=== PATIENT | male | born 1945 | race Caucasian/White ===

== ENCOUNTER 2017-11-11 10:17 | Inpatient (IN) ==
[2017-11-11] MEDS: *HR* OxyCODONE/APAP 5/325 TABLET PO PRN (16:55)
[2017-11-11] MEDS: Mag Hydrox/Al Hydrox/Simeth 30 ML UDC PO PRN ×2 (17:40→22:59)
[2017-11-11] MEDS: *HR* Ticagrelor 90 MG TABLET PO SCH (20:54)
[2017-11-12] MEDS: *HR* OxyCODONE/APAP 5/325 TABLET PO PRN ×4 (00:36→21:33)
[2017-11-12 07:44] LABS: Basophils # 0.1 K/mcL (0.0-0.2); Basophils % 0.6 %; Eosinophils # 0.6 K/mcL (0.0-0.6); Hematocrit 32.9 % (37.5-50.1); Hemoglobin 10.9 g/dL (12.9-16.9); Immature Granulocytes % 0.8 % (0-4); Lymphocytes # 1.5 K/mcL (0.6-4.6); Lymphocytes % 19.2 %; Mean Corpuscular HGB Conc 33.1 g/dL (31.6-35.5); Mean Corpuscular Hemoglobin 30.6 pg (28.0-33.3); Mean Corpuscular Volume 92.4 fL (83.0-100.0); Mean Platelet Volume 9.1 fL (9.4-12.4); Monocytes # 0.6 K/mcL (0.0-1.3); Monocytes % 7.9 %; Neutrophils # 5.1 K/mcL (1.6-8.9); Platelet Count 457 K/mcL (140-400); Red Blood Count 3.56 M/mcL (4.19-5.50); Red Cell Distribution Width 13.4 % (11.5-14.5); Segmented Neutrophils % 64.5 %
[2017-11-12 07:51] LABS: INR 1.2; Prothrombin Time 13.5 Seconds (9.4-12.1)
[2017-11-12 07:54] LABS: Activated Partial Thrombo Time 31.6 Seconds (26.0-36.0)
[2017-11-12] MEDS: Aspirin Enteric Coated 81 MG Tablet PO SCH (07:54)
[2017-11-12] MEDS: *HR* Ticagrelor 90 MG TABLET PO SCH ×2 (07:54→21:32)
[2017-11-12] MEDS: Multivit/Ca/Min/Fe/FA 1 TAB TABLET PO SCH (07:55)
[2017-11-12] MEDS: Cholestyramine 4 GM POWD.PACK PO SCH (07:56)
[2017-11-12] MEDS: Metoprolol XL (24 HR) Succ 50 MG TAB.ER.24H PO SCH (07:57)
[2017-11-12] MEDS ORDERED: NON-FORMULARY MEDICATION 1 EACH EACH (Ubidecarenone [Coq10] 50 MG) PO SCH (09:00)
[2017-11-12] MEDS ORDERED: NON-FORMULARY MEDICATION 1 EACH EACH (Omega-3 Fatty Acids [Fish Oil] 300 MG) PO SCH (09:00)
[2017-11-12 11:10] LABS: BUN/Creatinine Ratio 13 (6-26); Blood Urea Nitrogen 14 mg/dL (8-23); Calcium 8.7 mg/dL (8.6-10.3); Carbon Dioxide 25 mEq/L (23-29); Chloride 107 mEq/L (98-107); Glucose 109 mg/dL (70-105); Osmolality,Calculated 291 (280-300); Potassium 4.3 mEq/L (3.5-5.1); Sodium 140 mEq/L (136-145); eGFR For Non-African Americans > 60 (> 60)
[2017-11-12] MEDS: Mag Hydrox/Al Hydrox/Simeth 30 ML UDC PO PRN (16:48)
[2017-11-12] MEDS ORDERED: MOM Conc 10 ML UD.LIQ PO PRN (19:13)
--- NOTE | 2017-11-12 19:23 | Internal Med History&Physical ---
Date of Encounter: 11/12/17 Time of Encounter: 18:40 Assessment and Plan (1) CAD (coronary artery disease) Current visit: No Status: Chronic CABG 11/05/2017. Continue medical therapy. PT and OT evaluations with ongoing intervention will be done. Qualifiers: Coronary Disease-Associated Artery/Lesion type: [place] artery [place] vs. transplanted heart: [place] heart Associated angina: with unstable angina Qualified Code(s): I25.110 - Atherosclerotic heart disease of [place] coronary artery with unstable angina pectoris (2) Hyperlipidemia Current visit: No Status: Chronic Statin intolerant. Qualifiers: Hyperlipidemia type: unspecified Qualified Code(s): E78.5 - Hyperlipidemia , unspecified (3) GERD (gastroesophageal reflux disease) Current visit: No Status: Chronic Schedule PPI and use Mylanta when necessary. Qualifiers: Esophagitis presence: esophagitis presence not specified Qualified Code(s) : K21.9 - Gastro-esophageal reflux disease without esophagitis (4) Anemia Current visit: Yes Status: Acute Postop anemia. Monitor CBC. Qualifiers: Anemia type: unspecified type Qualified Code(s): D64.9 - Anemia, unspecified Internal Medicine - H&P: HPI Chief complaint: CABG Admitted From: Hospital to Hospital Transfer Plans for Post Hospital Care: Home History of present illness: Mr. Mc is a 72 year old male who was transferred to [facility] swing bed following hospitalization at [facility] October 31-November 11. He had 2 non-STEMI is in the 2 weeks preceding surgery and stent placement. He underwent 3 vessel CABG (ERNANDEZ to LAD, SVG to PDA, and SVG to OM1) on 11/05/2017. His postop course was unremarkable and he was discharged to [facility] swing bed for rehabilitation therapy prior to returning home. He had multiple previous stents. He denies hypertension, DVT or pulmonary embolus. Echocardiogram 10/30/2017 showed LVEF of 60% with mild LV diastolic dysfunction reported. The E/A ratio was 0.9. There was mild tricuspid regurgitation and mild to moderate pulmonic regurgitation. He underwent left carotid endarterectomy September 2017. 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 Past Med Surg Social Fam HX - Past Medical History Medical history: CVA, hypertension, myocardial infarction Additional medical history: Carotid stenosis Psychiatric history: no psych history - Past Surgical History Surgical History: angioplasty/stent, colostomy, orthopedic, other Additional surgical history: LITHOTRIPSY FOR KIDNEY STONES. ORIF LEFT ANKLE. Carotid Surgery - Social History Smoking Status: Never smoker Smokeless Tobacco Status: No Alcohol use: none Drug use: none - Family History Father Living Status: Hx Family Cardiac Disorders: Yes (CABG) Internal Medicine - H&P: Meds Aspirin [Adult Aspirin Regimen] 81 mg PO DAILY 09/09/17 [History] Multivitamin [Multivitamins] 1 each PO DAILY 10/27/17 [History] [place]-3 Fatty Acids [Fish Oil] 300 mg PO DAILY 10/27/17 [History] Ubidecarenone [Coq10] 50 mg PO DAILY 10/27/17 [History] Cholestyramine 4 gm PO 0700 #30 powd.pack 10/30/17 [Rx] Metoprolol XL (24 HR) Succ [Toprol Xl] 50 mg PO DAILY #30 tab.er.24h 10/30/17 [ Rx] Ticagrelor [Brilinta] 90 mg PO BID #60 tablet 10/30/17 [Rx] OxyCODONE/APAP 5/325 [Percocet 5/325 MG] 1 each PO Q4HR PRN 7 Days #42 tablet [Rx] 3 Allergy/AdvReac Type Severity Reaction Status Date / Time niacin Allergy See Verified 10/28/17 10:24 Comments Jalwtty-Ldb-Pix Reductase Allergy See Verified 10/28/17 10:24 Inhibitor Comments [Statins] All Systems PM: A 10-system review of systems was performed and is negative for pertinent findings except as documented above in the HPI. Review of systems: Gen.: He states his weight has been stable the past few months Cardiovascular: As per history of present illness Respiratory: He is a lifelong nonsmoker and has no known chronic lung disease GI: He reports gluten sensitivity. He has esophageal spasm with GERD. Denies disorders of his liver gallbladder or exocrine pancreas. : He had remote kidney stone. He denies other kidney bladder prostate disorders. Neurologic: He reports having a stroke in 1988 without permanent neurologic deficit other than being "emotional" since the stroke. He has been diagnosed with peripheral neuropathy. Endocrine: He has hyperlipidemia but is statin intolerant. He denies diabetes or thyroid disease. Hematology/oncology: He had postoperative anemia developed after CABG surgery. He denies internal malignancies or other blood disorders. Psychiatric: Has anxiety but denies depression or other mental health issues. [place] skeletal: He has DJD. He denies gout. - Constitutional Vitals: Temp Pulse Resp BP Pulse Ox 98.5 F 88 19 122/68 99 11/12/17 07:15 11/12/17 07:15 11/12/17 07:15 11/12/17 07:15 11/12/17 07:15 Exam: Gen.: He is well-developed well-nourished male resting comfortably in bed who appears in no acute distress HEENT: Head is atraumatic and normocephalic. Eyes: EOMI. There is no scleral icterus. Mouth: Mucosa is moist. Neck: Supple and nontender. There is no thyromegaly or adenopathy noted. Heart: Regular without murmurs gallops or ectopics Chest: He has a healing sternal incision with multiple epigastric stab wounds from drain sites. Abdomen is nontender to palpation. Extremities: There is no cyanosis edema or clubbing noted. He has healing incisions in his right leg from SVG harvest. Neurologic: Mental status: He is talkative and a good historian. He has transient emotional sadness moments where he almost becomes tearful for a few seconds then abruptly returns to smiling. Cranial nerves: Smile is symmetric. Forehead wrinkles bilaterally. Tongue protrudes midline. EOMI. Motor: There is no pronator drift. Cerebellar: Finger to nose is intact bilaterally. Skin: Warm and dry Internal Med - H&P Results - Labs CBC & Chem 7: 11/12/17 07:33 11/12/17 07:33 Labs: Short CBC 11/12/17 Range/Units 07:33 WBC 7.9 (4.3-11.1) K/mcL Hgb 10.9 L (12.9-16.9) g/dL Hct 32.9 L (37.5-50.1) % Plt Count 457 H D (140-400) K/mcL Neutrophils # 5.1 (1.6-8.9) K/mcL BMP 11/12/17 07:33 Sodium 140 Potassium 4.3 Chloride 107 Carbon Dioxide 25 BUN 14 Creatinine 1.06 Glucose 109 H Calcium 8.7
[2017-11-13] MEDS: *HR* OxyCODONE/APAP 5/325 TABLET PO PRN ×4 (02:56→20:47)
[2017-11-13] MEDS: ALPRAZolam 0.5 MG TABLET PO PRN (03:32)
[2017-11-13] MEDS: Metoprolol XL (24 HR) Succ 50 MG TAB.ER.24H PO SCH (07:28)
[2017-11-13] MEDS: Cholestyramine 4 GM POWD.PACK PO SCH (07:28)
[2017-11-13] MEDS: Aspirin Enteric Coated 81 MG Tablet PO SCH (07:28)
[2017-11-13] MEDS: Multivit/Ca/Min/Fe/FA 1 TAB TABLET PO SCH (07:28)
[2017-11-13] MEDS: *HR* Ticagrelor 90 MG TABLET PO SCH ×2 (07:32→20:46)
--- NOTE | 2017-11-13 20:01 | Internal Med Progress Note ---
Date of Encounter: 11/13/17 Time of Encounter: 19:50 - Assessment and plan (1) CAD (coronary artery disease) Current Visit: No Status: Chronic Assessment and plan: November 13. CABG 11/05/2017. Continue medical therapy and PT OT intervention. Anticipate discharge home in 2-3 days. Qualifiers: Coronary Disease-Associated Artery/Lesion type: [place] artery [place] vs. transplanted heart: [place] heart Associated angina: with unstable angina Qualified Code(s): I25.110 - Atherosclerotic heart disease of [place] coronary artery with unstable angina pectoris (2) Hyperlipidemia Current Visit: No Status: Chronic Assessment and plan: November 13. Statin intolerant Qualifiers: Hyperlipidemia type: unspecified Qualified Code(s): E78.5 - Hyperlipidemia , unspecified (3) GERD (gastroesophageal reflux disease) Current Visit: No Status: Chronic Assessment and plan: November 13. Continue scheduled PPI and Mylanta when necessary Qualifiers: Esophagitis presence: esophagitis presence not specified Qualified Code(s) : K21.9 - Gastro-esophageal reflux disease without esophagitis (4) Anemia Current Visit: Yes Status: Acute Assessment and plan: November 13. Postop anemia. Monitor CBC as needed. Qualifiers: Anemia type: unspecified type Qualified Code(s): D64.9 - Anemia, unspecified - Subjective Interval history: November 13. He has no new complaints and feels well. - Constitutional Vitals: Temp Pulse Resp BP Pulse Ox 98.1 F 88 16 97/66 97 11/13/17 19:03 11/13/17 19:03 11/13/17 19:03 11/13/17 19:03 11/13/17 19:03 Exam: He is resting comfortably in bed and appears in no acute distress. His affect is cheerful. I reviewed his medications and lab results. Internal Medicine: Result - Labs CBC & Chem 7: 11/12/17 07:33 11/12/17 07:33 - ABG Interpretation ABG results: PT/INR, D-dimer PT 13.5 Seconds (9.4-12.1) H 11/12/17 07:33 Consult Discharge Plan - Plan Referrals: Harshil Carrera MD [Primary Care Provider] - 1 week
[2017-11-14] MEDS: *HR* OxyCODONE/APAP 5/325 TABLET PO PRN ×4 (05:24→22:55)
[2017-11-14] MEDS: Aspirin Enteric Coated 81 MG Tablet PO SCH (08:32)
[2017-11-14] MEDS: Multivit/Ca/Min/Fe/FA 1 TAB TABLET PO SCH (08:32)
[2017-11-14] MEDS: Cholestyramine 4 GM POWD.PACK PO SCH (08:32)
[2017-11-14] MEDS: Metoprolol XL (24 HR) Succ 50 MG TAB.ER.24H PO SCH (08:32)
[2017-11-14] MEDS: *HR* Ticagrelor 90 MG TABLET PO SCH ×2 (08:32→22:56)
[2017-11-14] MEDS: ALPRAZolam 0.5 MG TABLET PO PRN (17:09)
[2017-11-15] MEDS: *HR* OxyCODONE/APAP 5/325 TABLET PO PRN ×2 (03:40→10:55)
[2017-11-15] MEDS: Cholestyramine 4 GM POWD.PACK PO SCH (06:33)
[2017-11-15] MEDS: Multivit/Ca/Min/Fe/FA 1 TAB TABLET PO SCH (08:14)
[2017-11-15] MEDS: Metoprolol XL (24 HR) Succ 50 MG TAB.ER.24H PO SCH (08:14)
[2017-11-15] MEDS: Aspirin Enteric Coated 81 MG Tablet PO SCH (08:14)
[2017-11-15] MEDS: *HR* Ticagrelor 90 MG TABLET PO SCH (08:15)
[2017-11-15 09:02] VITALS: BP 125/76
--- NOTE | 2017-11-15 09:25 | Discharge Summary ---
Date of Encounter: 11/15/17 Time of Encounter: 09:15 - Discharge Diagnosis (1) CAD (coronary artery disease) Priority: Primary Status: Chronic Qualifiers: Coronary Disease-Associated Artery/Lesion type: [place] artery [place] vs. transplanted heart: [place] heart Associated angina: with unstable angina Qualified Code(s): I25.110 - Atherosclerotic heart disease of [place] coronary artery with unstable angina pectoris (2) Hyperlipidemia Priority: Secondary Status: Chronic Qualifiers: Hyperlipidemia type: unspecified Qualified Code(s): E78.5 - Hyperlipidemia , unspecified (3) GERD (gastroesophageal reflux disease) Priority: Secondary Status: Chronic Qualifiers: Esophagitis presence: esophagitis presence not specified Qualified Code(s) : K21.9 - Gastro-esophageal reflux disease without esophagitis (4) Anemia Priority: Secondary Status: Acute Qualifiers: Anemia type: unspecified type Qualified Code(s): D64.9 - Anemia, unspecified Hospital course: Mr. Mc is a 72 year old male who was transferred to [facility] swing bed following hospitalization at [facility] October 31-November 11. He had 2 non-STEMI is in the 2 weeks preceding surgery and stent placement. He underwent 3 vessel CABG (ERNANDEZ to LAD, SVG to PDA, and SVG to OM1) on 11/05/2017. His postop course was unremarkable and he was discharged to [facility] swing bed for rehabilitation therapy prior to returning home. Initial orders were written by the discharging physician at [facility]. I saw him on November 12 and performed the swing bed history and physical. Physical therapy and occupational therapy evaluations with ongoing intervention were done. He made satisfactory progress. There were no complications and on November 15 arrangements were complete for him to be discharged home. He will follow with his PCP within 1 week. 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 He will have home health services ordered. - Time Spent with Patient Total time spent providing and/or coordinating discharge services: - Discharge Medications Prescriptions: ALPRAZolam [Xanax 0.5 MG Tablet] 0.5 mg PO Q6H PRN 3 Days #12 tablet PRN Reason: Anxiety Home Medications: Aspirin [Adult Aspirin Regimen] 81 mg PO DAILY 09/09/17 [History] Multivitamin [Multivitamins] 1 each PO DAILY 10/27/17 [History] [place]-3 Fatty Acids [Fish Oil] 300 mg PO DAILY 10/27/17 [History] Ubidecarenone [Coq10] 50 mg PO DAILY 10/27/17 [History] Cholestyramine 4 gm PO 0700 #30 powd.pack 10/30/17 [Rx] Metoprolol XL (24 HR) Succ [Toprol Xl] 50 mg PO DAILY #30 tab.er.24h 10/30/17 [ Rx] Ticagrelor [Brilinta] 90 mg PO BID #60 tablet 10/30/17 [Rx] OxyCODONE/APAP 5/325 [Percocet 5/325 MG] 1 each PO Q4HR PRN 7 Days #42 tablet [Rx] ALPRAZolam [Xanax 0.5 MG Tablet] 0.5 mg PO Q6H PRN 3 Days #12 tablet 11/15/17 [ Rx] Allergies/Adverse Reactions: 3 Allergy/AdvReac Type Severity Reaction Status Date / Time niacin Allergy See Verified 10/28/17 10:24 Comments Rxfimhb-Tcy-Zwd Reductase Allergy See Verified 10/28/17 10:24 Inhibitor Comments [Statins] Date of admission: 11/11/17 10:44 Primary care physician: Harshil Carrera MD Consults: 11/11/17 10:53 Consult to Occupational Therapy [CONS] Routine Comment: eval, develop, and implement POC Reason for Consult: eval, develop, and implement POC Does patient have active BEDREST order?: No Is patient medically & hemodynamically stable?: Yes Consult to Physical Therapy [CONS] Routine Comment: eval, develop, and implement POC Reason for Consult: eval, develop, and implement POC Does patient have active BEDREST order?: No Is patient medically & hemodynamically stable?: Yes Consult to Cardiac Monitor Technician [CONS] Routine Reason for SW Consult: may need HH upon discharged - Constitutional Vitals: Temp Pulse Resp BP Pulse Ox 98.2 F 92 18 125/76 96 11/15/17 08:59 11/15/17 08:59 11/15/17 08:59 11/15/17 08:59 11/15/17 08:59 - Patient Status Disposition: Home Health Service - Discharge Instructions Follow Up With: Harshil Carrera MD [Primary Care Provider] - 1 week - Diet and Activity Activity: as per physical therapy Diet: advance to your usual diet - VTE Documentation of Mechanical Device: Graduated compression elastic hosiery
--- NOTE | 2017-11-15 09:29 | Physician Discharge Referral ---
Home Health/Hosp Referral Info Transfer to: Home Health Attending Provider: Tyron Provider in Charge Post Discharge: PCP Jonathon) - Diagnosis (1) CAD (coronary artery disease) Priority: Primary Status: Chronic (2) Hyperlipidemia Priority: Secondary Status: Chronic (3) GERD (gastroesophageal reflux disease) Priority: Secondary Status: Chronic (4) Anemia Priority: Secondary Status: Acute - Respiratory Orders Smoking Cessation: Smoking cessation has been advised. For more information, call the [place] Tobacco Quit Line at 1-374-HYWX-NOW. - Diet/Nutrition Diet/Nutrition Orders: Cardiac - Activity Activity Orders: Up ad linda - Services Needed Following services are medically necessary services: Nursing, Home Health Aide, Physical Therapy, Occupational Therapy - Transfer Medications Prescriptions: ALPRAZolam [Xanax 0.5 MG Tablet] 0.5 mg PO Q6H PRN 3 Days #12 tablet PRN Reason: Anxiety Home Medications: Aspirin [Adult Aspirin Regimen] 81 mg PO DAILY 09/09/17 [History] Multivitamin [Multivitamins] 1 each PO DAILY 10/27/17 [History] [place]-3 Fatty Acids [Fish Oil] 300 mg PO DAILY 10/27/17 [History] Ubidecarenone [Coq10] 50 mg PO DAILY 10/27/17 [History] Cholestyramine 4 gm PO 0700 #30 powd.pack 10/30/17 [Rx] Metoprolol XL (24 HR) Succ [Toprol Xl] 50 mg PO DAILY #30 tab.er.24h 10/30/17 [ Rx] Ticagrelor [Brilinta] 90 mg PO BID #60 tablet 10/30/17 [Rx] OxyCODONE/APAP 5/325 [Percocet 5/325 MG] 1 each PO Q4HR PRN 7 Days #42 tablet [Rx] ALPRAZolam [Xanax 0.5 MG Tablet] 0.5 mg PO Q6H PRN 3 Days #12 tablet 11/15/17 [ Rx] Allergies/Adverse Reactions: 3 Allergy/AdvReac Type Severity Reaction Status Date / Time niacin Allergy See Verified 10/28/17 10:24 Comments Fqemgbs-Sho-Jjo Reductase Allergy See Verified 10/28/17 10:24 Inhibitor Comments [Statins] Certification: Further, I certify that my clinical findings support that this patient is homebound (i.e. absences from home require considerable and taxing effort and are for medical reasons or sabianism services or infrequently or short duration when for other reasons) because: Homebound Reason: Post-surgery restriction and or conditions limit ability to leave home (Three-vessel CABG with functional limitations.) Attestation: My signature below is to certify that this patient is under my care and that I, or nurse practitioner, or a physician's retail assistant working with me, has a face-to -face encounter with this patient.
[2017-11-15] MEDS: ALPRAZolam 0.5 MG TABLET PO PRN (09:37)
== END 2017-11-15 12:50 | disposition home health service (06) | DRG 281 ==
LOC: INPPIK 10:44
PROVIDERS: ADMIT Internal Medicine; ATTEND Internal Medicine